=== PATIENT | female | born 1940 | race Caucasian/White ===

== ENCOUNTER 2021-03-21 16:58 | Inpatient (IN) | payer MEDICARE, OTHER ==
[~2021-03-21] VITALS: Ht 157.5 cm; Wt 67.6 kg
[2021-03-22] MEDS ORDERED: CRESTOR20 MG PO (10:45)
[2021-03-22] MEDS ORDERED: LISINOPRIL20 MG PO (10:46)
[2021-03-22] MEDS ORDERED: TOPROL XL50 MG PO (10:54)
[2021-03-22] MEDS ORDERED: HYDROCHLOROTH12.5 M2 PO (10:58)
[2021-03-22] MEDS ORDERED: FEOSOL325 M1 PO (10:59)
[2021-03-22] MEDS ORDERED: ELIQUIS2.5 MG PO (11:01)
[2021-03-22] MEDS ORDERED: CARDIZEM120 MG PO (11:02)
[2021-03-22] MEDS ORDERED: VIMPAT100 MG PO (12:19)
[2021-03-22 13:23] VITALS: BP 156/60
--- NOTE | 2021-03-22 17:42 | NUR ---
PATIENT ARRIVED IN NO ACUTE DISTRESS. ASSESSMENT DONE CHARTED. DENIES NEED FOR PAIN MEDICATION. ORIENTED TO ROOM AND BED CONTROLS.
--- NOTE | 2021-03-22 18:15 | NUR ---
ALERT AND ORIENTED X4. UP WITH 1 ASSIST, GAIT BELT AND WALKER. DENIES NEED FOR PAIN MEDICATION. CONTINENT OF BOWEL AND BLADDER TODAY. ON SEIZURE PRECAUTIONS. USES CALL LIGHT FOR ASSIST. FALL PRECAUTIONS IN PLACE. BED AND CHAIR ALARM USED.
[2021-03-22 19:50] VITALS: BP 123/48
--- NOTE | 2021-03-23 05:01 | NUR ---
ASSUMED CARES AT 1920. ALERT AND ORIENTED. PLEASANT. CAN BE IMPULSIVE AT TIMES. MIN ASSIST WITH GAIT BELT AND WALKER. UP TO BATHROOM. STRESS INCONTINENCE. MEPILEX TO LEFT FOREARM INTACT. ZGUARD TO ABRASIONS TO BUTTOCKS. SLEPT OFF AND ON. CALL LIGHT IN REACH AND BED ALARM ON.
[2021-03-23 05:26] LABS: HEMATOCRIT 33.2 % (37.0-47.0); HEMOGLOBIN 11.2 gm/dL (12.0-15.0); MCH 31.7 pg (26.0-34.0); MCHC 33.7 g/dL (28.0-37.0); MCV 94.2 fL (80.0-100.0); MPV 7.5 fl. (7.2-11.1); RBC 3.53 mil/uL (4.20-5.00); RDW-CV 14.3 % (10.5-14.5); WBC 5.3 thou/uL (4.0-11.0)
[2021-03-23 05:55] LABS: CALCIUM 8.7 mg/dL (8.5-10.1); CREATININE 0.8 mg/dL (0.6-1.3); POTASSIUM 3.7 mmol/L (3.5-5.1)
[2021-03-23 09:12] VITALS: BP 122/59
--- NOTE | 2021-03-23 13:28 | NUR ---
Nutrition: Admit to rehab. Pt had just eaten 75-100% of lunch. Reported good appetite. Was unsure of UBW 145-154 lb possibly. Meds reviewed. BMP reviewed. Denied trouble chewing or swallowing. No needs at this time. Assessed at low nutrition risk.
--- NOTE | 2021-03-23 16:20 | NUR ---
PT WORKED WITH THERAPIES. UP WITH WALKER, GAIT BELT, AND MIN ASSIST. SEIZURE PRECAUTIONS IN PLACE. Z GUARD APPLIED TO BUTTOCK ABRASIONS. DENIES PAIN. CALL LIGHT IN REACH. FALL PRECAUTIONS IN PLACE. FAMILY HERE TO VISIT.
[2021-03-23 19:00] VITALS: BP 111/54
[2021-03-24 04:52] LABS: HEMATOCRIT 33.5 % (37.0-47.0); HEMOGLOBIN 11.4 gm/dL (12.0-15.0); MCH 31.9 pg (26.0-34.0); MCHC 33.9 g/dL (28.0-37.0); MCV 94.1 fL (80.0-100.0); MPV 7.6 fl. (7.2-11.1); RBC 3.55 mil/uL (4.20-5.00); RDW-CV 14.1 % (10.5-14.5); WBC 5.2 thou/uL (4.0-11.0)
[2021-03-24 04:57] LABS: CALCIUM 8.6 mg/dL (8.5-10.1); CREATININE 0.8 mg/dL (0.6-1.3); POTASSIUM 3.9 mmol/L (3.5-5.1)
--- NOTE | 2021-03-24 05:41 | NUR ---
ASSUMED CARE AT 1920. ALERT AND ORIENTED. PLEASANT. MIN ASSIST WITH GAIT BELT AND WALKER. UP TO BR SEVERAL TIMES OVERNIGHT. C/O BACK/NECK PAIN. TYLENOL GIVEN PER REQUEST. SLEPT OFF AND ON. CALL LIGHT IN REACH AND BED ALARM ON.
[2021-03-24 07:20] VITALS: BP 154/85
--- NOTE | 2021-03-24 18:10 | NUR ---
PT WORKED WITH THERAPIES. UP WITH WALKER, GAIT BELT, AND MIN ASSIST. SON UPDATED ON PT PROGRESS AND MEDICATIONS. CALL LIGHT IN REACH. FALL PRECAUTIONS IN PLACE.
[2021-03-24 20:00] VITALS: BP 134/55
--- NOTE | 2021-03-25 00:41 | NUR ---
ASSUMED CARE AT 1914. PATIENT RESTING IN BED. UP WITH ONE, GAIT BELT, WALKER. VOIDS PER TOILET OFTEN. DOES OWN CARES. TAKES PILLS WHOLE WITH WATER. ON SEIZURE PRECAUTIONS. DRESSING TO LT FOREARM INTACT. APAP AT HS FOR C/O PAIN. SEE NOV. HOURLY ROUNDS CONTINUE. BED ALARM ON. CALL LITE IN REACH.
--- NOTE | 2021-03-25 05:20 | NUR ---
SLEPT BETWEEN VOIDS. VOIDING OFTEN. INCONTINENT OF URINE, WEARING BRIEF. ENCOUARGED SKIN CARE, MOISTURE BARRIER. STATES AT HOME SHE IS INCONTINENT OF URINE INTO A "DIAPER" AND "PAD" AND WAS ASKING FOR SOMETHING MORE ABSORBENT SO SHE WOULD NOT HAVE TO GET UP OFTEN. INSTRUCTED IN NEED FOR VOIDING INTO TOILET FOR BEST HYGIENE, GOOD SKIN CARE TO PREVENT INFECTIONS. PATIENT VERBALIZED UNDERSTANDING. TURNS SELF, ABLE TO DON AND DOFF GRIPPER SOCKS. NO C/O PAIN. HOURLY ROUNDS CONTINUE. BED ALARM ON. CALL LITE IN REACH.
[2021-03-25 08:00] VITALS: BP 146/77
--- NOTE | 2021-03-25 17:46 | NUR ---
RECEIVED REPORT AROUND 0715. ASSUMED CARE. VS AND ASSESSMENT CHARTED. MEDS GIVEN PER NOV. HOURLY ROUNDING PERFORMED. WORKED WITH THERAPIES THIS SHIFT. NO PAIN THROUGHOUT SHIFT. CALL LIGHT WITH IN REACH. WILL CONTINUE TO MONITOR.
[2021-03-25 19:50] VITALS: BP 130/66
--- NOTE | 2021-03-26 04:20 | NUR ---
PT A&O X 4. VSS ON RA. MEDS GIVEN ORDERED. C/O NECK PAIN, TYLENOL GIVEN. UP WITH SBA TO THE BR FREQUENTLY. BED ALARM ON FOR SAFETY. CALL LIGHT WITHIN REACH. WILL CONTINUE TO MONITOR.
[2021-03-26 07:30] VITALS: BP 176/90
[2021-03-26 07:52] VITALS: BP 165/90
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
--- NOTE | 2021-03-26 17:23 | NUR ---
ALERT AND ORIENTED X4. UP WITH STAND BY ASSIST. GAIT BELT AND WALKER TO BATHROOM. DENIED NEED FOR PAIN MEDICATION. REMAINS ON SEIZURE PRECAUTIONS. RAILS PADDED. LEFT ARM SKIN TEAR HEALED. CONTINENT OF BOWEL AND BLADDER. USES CALL LIGHT FOR ASSIST. FALL PRECAUTIONS IN PLACE. BED ALARM AND CHAIR ALARM USED. TALKES PILLS WITHOUT DIFFICULTY.
[2021-03-26 20:17] VITALS: BP 140/60
--- NOTE | 2021-03-26 23:37 | NUR ---
ASSUMED CARE AT 1915. PATIENT ASSISTED TO BED. UP EVERY HOUR THUS FAR, VOIDS PER TOILET. INCONTINENT OF URINE AT TIMES, WEARING BRIEF. SKIN BARRIER IN ROOM HAD CALAMINE IN IT AND SHE IS ALLERGIC TO CALAMINE. PLAIN MOISTURE BARRIER APPLIED TO PERINEUM IN HOPES OF DECREASING BURNING FEELING. NO C/O PAIN. TAKES PILLS WHOLE WITH WATER. HOURLY ROUNDS CONTINUE. BED ALARM ON. CALL LITE IN REACH.
--- NOTE | 2021-03-27 06:02 | NUR ---
HAS VOIDED EVERY HOUR AND SOMETIMES LESS FREQUENTLY THAN HOURLY. INCONTINENT ON MANY VOIDS INTO BRIEF. UP WITH GAIT BELT, WALKER, VOIDS PER TOILET. MEDICATED ONCE FOR PAIN WITH RELIEF, SEE MAR. HOURLY ROUNDS CONTINUE. BED ALARM ON. CALL LITE IN REACH.
[2021-03-27 07:39] VITALS: BP 150/77
--- NOTE | 2021-03-27 18:00 | NUR ---
PT WORKED WITH THERAPIES. UP WITH GAIT BELT, WALKER, AND ASSIST X1. URINATES FREQUENTLY AND IS INCONT AT TIMES. SISTER VISITED. CALL LIGHT IN REACH. FALL PRECAUTIONS IN PLACE.
[2021-03-27 19:00] VITALS: BP 140/54
[2021-03-28 07:23] VITALS: BP 147/64
--- NOTE | 2021-03-28 18:05 | NUR ---
PT UP WITH GAIT BELT, WALKER, AND ASSIST X1. URINATES FREQUENTLY. INCONT. SEIZURE PRECAUTIONS IN PLACE. SON HERE TO VISIT. CALL LIGHT IN REACH. FALL PRECAUTIONS IN PLACE.
[2021-03-28 20:00] VITALS: BP 141/71
--- NOTE | 2021-03-29 05:06 | NUR ---
ASSUMED CARE AT 1920. ALERT AND ORIENTED. PLEASANT. C/O NECK AND SHOULDER PAIN. TYLENOL GIVEN. MIN ASSIST WITH GAIT BELT AND WALKER. UP TO BATHROOM SEVERAL TIMES OVERNIGHT. SLEPT OFF AND ON. CALL LIGHT IN REACH AND BED ALARM ON.
[2021-03-29 08:45] VITALS: BP 158/84
--- NOTE | 2021-03-29 11:53 | NUR ---
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 JOHANNA PEREZ, LAISHAT
--- NOTE | 2021-03-29 16:59 | NUR ---
ALERT AND ORIENTED X4 WITH PERIODS OF FORGETFULNESS. UP WITH 1 ASSIST, GAIT BELT AND WALKER WITH CUEING NEEDED. CONTINENT OF BOWEL AND BLADDER TODAY. DENIES NEED FOR PAIN MEDICATION. TAKES PILLS WHOLE WITHOUT DIFFICULTY. USES CALL LIGHT FOR ASSIST. FALL PRECAUTIONS IN PLACE WITH BED AND CHAIR ALARMS USED.
--- NOTE | 2021-03-29 17:02 | NUR ---
REMAINS ON SEIZURE PRECAUTIONS.
[2021-03-29 19:00] VITALS: BP 124/60
--- NOTE | 2021-03-30 05:22 | NUR ---
ASSUMED CARE AT 1920. ALERT AND ORIENTED. PLEASANT. TYLENOL GIVEN FOR NECK AND SHOULDER PAIN. MIN ASSIST WITH GAIT BELT AND WALKER. UP TO BATHROOM. SLEPT OFF AND ON. CALL LIGHT IN REACH AND BED ALARM ON.
[2021-03-30 07:24] VITALS: BP 138/69
--- NOTE | 2021-03-30 15:11 | NUR ---
Pt up with gait belt and walker, all therapies completed. Vitals all stable. call light and fall precautions in place.
--- NOTE | 2021-03-30 16:01 | NUR ---
CM SPOKE TO THE PT TO DISCUSS ANY QUESTIONS OR CONCERNS THAT SHE MAY HAVE FOR THIS WEEKS TEAM [facility]FRENCE MEETING. PT HAS NO QUESTIONS OR CONCERNS AT THIS TIME. PT'S SON DID NOT ANSWER, BUT CM LEFT A VOICEMAIL FOR HIM TO RETURN CALL WITH ANY QUESITONS OR CONCERNS. CM WILL REMAIN AVAILABLE TO ASSIST AND FOLLOW NEEDED.
[2021-03-30 19:00] VITALS: BP 118/47
[2021-03-31 04:40] LABS: HEMATOCRIT 34.2 % (37.0-47.0); HEMOGLOBIN 11.5 gm/dL (12.0-15.0); MCH 31.9 pg (26.0-34.0); MCHC 33.8 g/dL (28.0-37.0); MCV 94.4 fL (80.0-100.0); MPV 7.5 fl. (7.2-11.1); RBC 3.62 mil/uL (4.20-5.00); RDW-CV 14.7 % (10.5-14.5); WBC 4.3 thou/uL (4.0-11.0)
[2021-03-31 04:56] LABS: CALCIUM 8.5 mg/dL (8.5-10.1); CREATININE 0.8 mg/dL (0.6-1.3); POTASSIUM 3.9 mmol/L (3.5-5.1)
--- NOTE | 2021-03-31 05:07 | NUR ---
ASSUMED CARE AT 1920. ALERT AND ORIENTED. PLEASANT. SEIZURE PRECAUTIONS IN PLACE. MIN ASSIST WITH GAIT BELT AND WALKER. UP TO BATHROOM SEVERAL TIMES OVERNIGHT. SLEPT OFF AND ON. CALL LIGHT IN REACH AND BED ALARM ON.
[2021-03-31 08:00] VITALS: BP 146/86
--- NOTE | 2021-03-31 18:12 | NUR ---
PATIENT COMPLETED THERAPIES THIS SHIFT ORDERED. PATIENT MADE MOD-I THIS AFTERNOON AFTER TEAM MEETING FOR DISCHARGE HOME TOMORROW. PATIENT DOING WELL UP INDEPENDENTLY. NO COMPLAINTS OF PAIN. VOIDING PER TOILET. PATIENTS SON HERE THIS EVENING AND UPDATE GIVEN.
[2021-03-31 20:00] VITALS: BP 154/84
--- NOTE | 2021-04-01 05:14 | NUR ---
ASSUMED PT CARE AT 1930. PT ALERT AND ORIENTED, POLITE AND COOPERATIVE WITH CARES. SEIZURE PRECAUTIONS IN PLACE. NO C/O PAIN. PT MOD I IN ROOM. UP TO BATHROOM WITH WALKER. SLEPT MOST OF NOC. CALL LIGHT IN REACH. ANTICIPATING DISCHARGE HOME TODAY. HOURLY ROUNDING IN PROGRESS, WILL CONTINUE TO MONITOR.
[2021-04-01 07:54] VITALS: BP 160/71
[2021-04-01 10:07] VITALS: BP 160/71
[2021-04-01 10:09] VITALS: BP 160/71
== END 2021-04-01 16:09 | disposition home or self-care (01) | DRG 70 ==
LOC: M.REH 16:58
PROVIDERS: ADMIT Physical Medicine & Rehabilitation; ATTEND Physical Medicine & Rehabilitation
DX: G93.41 Metabolic encephalopathy (principal); I62.03 Nontraumatic chronic subdural hemorrhage; R53.81 Other malaise; I10 Essential (primary) hypertension; E78.5 Hyperlipidemia, unspecified; E66.01 Morbid (severe) obesity due to excess calories; I48.91 Unspecified atrial fibrillation; R13.10 Dysphagia, unspecified; G89.29 Other chronic pain; M54.5 Low back pain; Z79.01 Long term (current) use of anticoagulants; Z68.27 Body mass index [BMI] 27.0-27.9, adult; Z86.73 Personal history of transient ischemic attack (TIA), and cerebral infarction without residual deficits; Z88.6 Allergy status to analgesic agent; Z88.8 Allergy status to other drugs, medicaments and biological substances